=== PATIENT | male | born 1960 | race Caucasian/White ===

== ENCOUNTER 2021-04-20 05:55 | Observation (INO) ==
--- NOTE | 2021-03-30 09:54 | PAT Medication Instructions ---
Medication Instructions Date of Service March 30, 2021 Home Medications aspirin [Aspir-81] 81 mg PO QAM ibuprofen 400 mg PO DIRECTED PRN lisinopril 10 mg PO QAM ASK your surgeon for instructions ibuprofen 400 mg PO DIRECTED PRN DO NOT take the morning of surgery lisinopril 10 mg PO QAM Take morning of surgery With a small sip of water, OTHERWISE NOTHING TO EAT OR DRINK AFTER MIDNIGHT: aspirin [Aspir-81] 81 mg PO QAM (unless otherwise instructed by your surgeon) Other Notes If you have any questions please call us at [phone] or [phone] or [phone] or [phone]
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
[2021-04-20] MEDS ORDERED: TRANEXAMIC ACID 1,000 MG **IV Pre-op IV SCH (06:00)
[2021-04-20] MEDS ORDERED: ROPIVACAINE 0.5% HCL/PF 150 MG, BUPIVACAINE 0.75% MPF 20 ML, EPINEPHrine 30MG/30ML (OR ... INSTIL SCH (06:00)
[2021-04-20] MEDS ORDERED: CeleBREX 200 MG CAP PO SCH (06:00)
[2021-04-20] MEDS ORDERED: FAMOTIDINE 20 MG TAB PO SCH (06:00)
[2021-04-20] MEDS ORDERED: TRANEXAMIC ACID 1,000 MG **IV Intra-op IV SCH (06:00)
[2021-04-20] MEDS ORDERED: dexAMETHasone 4 MG TAB PO SCH (06:00)
[2021-04-20] MEDS ORDERED: GABAPENTIN 600 MG DOSE PO SCH (06:00)
[2021-04-20] MEDS ORDERED: LR 500ML BOLUS, THEN 15ML/HR IV SCH (06:00)
[2021-04-20] MEDS ORDERED: ACETAMINOPHEN 500 MG TAB PO SCH (06:00)
[2021-04-20] MEDS ORDERED: EPINEPHrine INJ 1 MG/ML AMP ONE (06:28)
[2021-04-20] MEDS ORDERED: LIDOCAINE 2%/EPINEPHRINE 1:200,000 20 ML SDV ONE (06:28)
[2021-04-20] MEDS ORDERED: ROPIVACAINE 0.5% 5 MG/ML 30 ML VIAL ONE (06:28)
--- NOTE | 2021-04-20 07:30 | History & Physical Bridge Note ---
Date of Service April 20, 2021 History & Physical Bridge Note I have examined the patient, reviewed the History & Physical and in the interval since the performance of the History & Physical I have noted the following changes of clinical significance: no changes noted
[2021-04-20] MEDS ORDERED: ORTHO JOINT ANESTHETIC ONE (07:31)
[2021-04-20] MEDS ORDERED: ONDANSETRON INJ 2 MG/ML 2 ML VIAL IV PRN ×2 (07:55→17:31)
[2021-04-20] MEDS ORDERED: MEPERIDINE HCL 25 MG/ML CARP/VIAL IV PRN (07:55)
[2021-04-20] MEDS ORDERED: PHENYLEPHRINE 100MCG/ML 5ML SYR IV PRN (07:55)
[2021-04-20] MEDS ORDERED: fentaNYL citrate 100 MCG/2 ML VIAL IV PRN (07:55)
[2021-04-20] MEDS ORDERED: HYDROmorphone INJ 1 MG/ML SYRINGE IV PRN (07:55)
[2021-04-20] MEDS ORDERED: ePHEDrine sulfate 50 MG/ML AMP IV PRN (07:55)
[2021-04-20] MEDS ORDERED: LABETALOL HCL IV 5 MG/ML 20ML IV PRN (07:55)
[2021-04-20] MEDS ORDERED: ATROPINE SULFATE 0.1 MG/ML 10ML SYR IV PRN (07:55)
[2021-04-20] MEDS ORDERED: fentaNYL citrate 100 MCG/2 ML VIAL ONE (08:02)
[2021-04-20] MEDS ORDERED: MEPIVACAINE HCL 2% 20 ML VIAL ONE (08:02)
[2021-04-20] MEDS ORDERED: MIDAZOLAM HCL 1 MG/ML 2ML VIAL ONE (08:03)
[2021-04-20] MEDS ORDERED: PROPOFOL IV EMULSION 10 MG/ML 20 ML VIAL IV ONE ×2 (08:32→09:08)
--- NOTE | 2021-04-20 09:40 | Operative Report ---
Post Operative Report Pre & Post Diagnosis Operation Date: 04/20/21 08:05 Pre-Op Diagnosis: Left Knee Osteoarthritis Post-Op Diagnosis: Left Knee Osteoarthritis I identified the patient and participated in the time-out.: Yes Procedure Operation Date: 04/20/21 08:05 Actual Procedures p Left Total Knee Arthroplasty(Left) utilizing [employer] persona CK size femur 10 CR tibia G poly 10 patella 31 x 8 oval- Kole Shaw DO Surgeon Kole Shaw DO Door Frame Builder JAIR Barrios Estimated Blood Loss 5 Findings Consistent with Post-Op Diagnosis Patient presents with severe end-stage tricompartmental degenerative joint disease left knee no response to conservative management patient is failed attempts at conservative management physical therapy anti-inflammatories and the patient had eburnated [id number] subchondral sclerosis marginal osteophytes subchondral cystic changes moderate to large effusion Specimens Bone and cartilage Drains Medium bore Hemovac Anesthesia Type MAC Spinal Regional Complications none Disposition Accompanied Patient To Recovery: No Disposition: Recovery Room Indications Patient presents with a failed attempted conservative management clinic physical therapy anti-inflammatories relative rest activity modification corticosteroid injection viscosupplementation above intraoperative findings were noted. Description of Procedure After proper prepping and draping of the left lower extremity anterior midline incision was made over the region of the extensor extensor mechanism after meticulous hemostasis was obtained and maintained in subcutaneous tissues a medial parapatellar incision was made The patella was subluxed lateralward the medial lateral gutter were cleaned from any hypertrophic synovitis and scar tissue of the distal femoral block was placed and the distal femoral osteotomy cut was made subsequently the chamfers anterior and posterior osteotomy cuts were made utilizing the 4-in-1 block the tibia was subsequently subluxed anteriorward medial and ateral meniscal remnants were excised in their entirety remnants of the anterior and posterior cruciate ligaments were excised in their entirety excellent exposure of the proximal tibia was obtained the tibial osteotomy guide was placed on the proximal tibial osteotomy cut was made once again the knee was irrigated with copious amounts of sterile saline solution the patella was subsequently everted lateralward thickened scar tissue around the patella was removed the patella was subsequently cut utilizing a freehand technique and was drilled prepared for final preparation and placement of patella socially flexion-extension gaps were checked and the equal and symmetric trials were placed to the appropriate femoral and tibial trials with poly-spacer being placed for equal flexion and extension gaps and full range of motion including extension to 0 and flexion to 140 the trial components after having been taken to recovery range of motion was subsequently removed meticulous hemostasis was obtained and maintained subsequently a knee block injection of joint cocktail including ropivacaine 0.5% 150 mg. Bupivacaine 0.5% epinephrine 1-200,030 mL's toradol 30 mg dexamethasone 4 mg ketamine 10 mg clonidine 100 micrograms normal saline solution 30 mg was infiltrated into the soft tissues of the posterior knee medial lateral gutters and periosteal synovium special attention was paid to protect neurovascular structures at all times subsequently trial components having been removed the knee was irrigated with sterile saline solution. debris was removed the proximal tibia was subsequently prepared and was made ready for the placement of the tibial component tibial component was also cemented and tamped into position the femoral component was subsequently placed and cemented in the position the patellar component was subsequently cemented in position because hemostasis once again obtained and maintained wound having been thoroughly irrigated with debridement and debridement lavage was performed as well as a medial parapatellar incision closed with #1 Vicryl in interrupted fashion subcutaneous was closed with #2 Vicryl skin was closed with skin clips. PA-C was necessary for prepping and drapping as well as wound closure of deep fascia Sub cutaneous tissue and skin and was necessary for the case. A sterile compressive dressing was placed patient was taken to recovery in stable condition of report dictated by Colin I attest to the content of the Intraoperative Record and any orders documented therein. Any exceptions are noted below. I attest to the content of the Intraoperative Record and any orders documented therein. Any exceptions are noted below.
[2021-04-20] MEDS ORDERED: oxyCODONE HCL IR 5 MG TAB (IMMEDIATE RELEASE) PO PRN ×2 (10:28)
[2021-04-20] MEDS ORDERED: HYDROmorphone INJ 0.5 MG/0.5 ML SYR IV PRN (10:28)
--- NOTE | 2021-04-20 11:03 | XRay Report ---
TWO VIEWS LEFT KNEE CLINICAL HISTORY: Postoperative examination. FINDINGS: AP and crosstable lateral portable views of the left knee are obtained. A left knee arthrop lasty is in near anatomic alignment. There has been undersurface remodeling of the patella. No acute fracture is seen. There are expected postoperative changes around the knee including a surgical drain , soft tissue edema, and subcutaneous gas. IMPRESSION: Expected postoperative changes status post left knee arthroplasty. No acute fracture is s een. ACT 112: Negative or not required by law. Electronically signed by: Brad Coyne M.D. 04/20/2021 11:02 AM
--- NOTE | 2021-04-20 11:17 | Anesthesiology Progress Note ---
Date of Service April 20, 2021 Anesthesia Post Procedure Vital Signs Vital Signs: Temp Pulse Pulse Resp BP Pulse Ox 04/20/21 11:10 36.4 C L 47 L 14 127/73 94 04/20/21 11:00 54 L 19 116/77 96 04/20/21 10:50 59 L 16 128/77 96 04/20/21 10:40 60 19 129/76 96 04/20/21 10:30 68 23 121/82 94 04/20/21 10:23 36.7 C 68 16 122/77 96 04/20/21 06:48 153/92 H 04/20/21 06:22 36.9 C 71 20 179/102 H 97 Pain Intensity Left Knee: Pain Intensity: 3 Transfer of Care Handoff Completed per policy Notes Mental Status: alert / awake / arousable Patient Amnestic to Procedure: Yes Nausea / Vomiting: adequately controlled Pain: adequately controlled Airway Patency, RR, SpO2: stable & adequate BP & HR: stable & adequate Hydration State: stable & adequate Neuraxial Anesthesia: was administered and sensory block is resolving Anesthetic Complications: no major complications apparent
[2021-04-20] MEDS ORDERED: MAGNESIUM HYDROXIDE SUSP 30 ML UDC PO PRN (17:31)
[2021-04-20] MEDS ORDERED: SODIUM CHLORIDE 0.9% 1000ML 1,000 ML IV SCH (17:31)
[2021-04-20] MEDS ORDERED: NALOXONE HCL 0.4 MG/1 ML VIAL/CARP IV PRN (17:31)
[2021-04-20] MEDS ORDERED: bisacodyL 10 MG SUPP PR PRN (17:31)
[2021-04-20] MEDS: ceFAZolin 2000MG 2,000 MG/15 ML SYR IV SCH (18:49)
[2021-04-20] MEDS ORDERED: SENNA 8.6 MG TAB PO SCH (21:00)
[2021-04-20] MEDS: DOCUSATE SODIUM 100 MG CAP PO SCH (21:30)
[2021-04-20] MEDS: CeleBREX 200 MG CAP PO SCH (21:30)
[2021-04-20] MEDS: ACETAMINOPHEN 500 MG TAB PO SCH (21:31)
[2021-04-21] MEDS: ceFAZolin 2000MG 2,000 MG/15 ML SYR IV SCH (02:33)
[2021-04-21] MEDS: ACETAMINOPHEN 500 MG TAB PO SCH ×2 (05:44→12:27)
[2021-04-21 07:02] LABS: Hematocrit (blood only) 33.4 % (42-52); Hemoglobin 11.2 g/dL (14.0-18.0); Mean Corpuscular Hemoglobin 28.9 pg (25-34); Mean Corpuscular Hgb Conc 33.5 g/dL (32-36); Mean Corpuscular Volume 86.1 fL (80-100); Mean Platelet Volume 10.2 fL (7.4-10.4); Platelet Count 178 K/uL (130-400); RDW Coefficient of Variation 13.5 % (11.5-14.5); RDW Standard Deviation 42.5 fL (36.4-46.3); Red Blood Count 3.88 M/uL (4.7-6.1); White Blood Count 12.11 K/uL (4.8-10.8)
[2021-04-21 07:35] LABS: BUN Creatinine Ratio 25.8 (10-20); Calcium 8.5 mg/dl (8.5-10.1); Creatinine Clr Calc Pharmacy 137.9 ml/min; Est GFR (African American) 110.8 ml/min; Est GFR (Non-African American) 95.6 ml/min; Potassium 3.8 mmol/L (3.5-5.1)
[2021-04-21] MEDS: CeleBREX 200 MG CAP PO SCH (07:37)
[2021-04-21] MEDS: DOCUSATE SODIUM 100 MG CAP PO SCH (07:37)
--- NOTE | 2021-04-21 07:49 | Orthopedic Progress Note ---
Date of Service April 21, 2021 Assessment & Plan (1) Arthritis of knee, left: Postop day 1 status post left total knee arthroplasty PT/OT protocols. Weightbearing as tolerated. Foot drop-resolving well. Likely from intraoperative injection. DVT prophylaxis-aspirin p.o. twice daily, SCDs, RONI desai. Pain management as written DC planning-patient is planning for home health services upon discharge. Plan for discharge to home today. Admission and Anticipated Discharge Date Admission Date: April 20, 2021 Subjective Postop day 1 Patient sitting up in bed awake and alert. No complaints this morning. Pain is controlled. Denies shortness of breath, chest pain, lightheadedness. Patient was kept overnight last night after not being able to ambulate well prior to possible discharge for outpatient total knee replacement. He also had a foot drop likely secondary from intraoperative injection. He states that that is doing much better this morning. He is hoping to go home today. Physical Exam Physical Exam: Dressings are clean, dry, and intact. Calves are soft nontender. He has good dorsiflexion and plantarflexion strength this morning in the operative LE. He does have some residual decrease sensation with a little bit of tingling in the dorsum of his foot but he states that is continuing to get better. DP pulse present. Hemovac drainage was 150 mL from the previous shift. Results & Data ([facility]) Vital Signs (Past 12 Hours) Vital Signs Temp Pulse Resp BP Pulse Ox 04/21/21 03:10 36.5 C 65 19 135/75 96 04/20/21 23:28 36.7 C 67 19 139/76 95 04/20/21 20:05 36.7 C 78 19 150/90 H 95 Laboratory Results Laboratory Results WBC 12.11 K/uL (4.8-10.8) H 04/21/21 06:42 RBC 3.88 M/uL (4.7-6.1) L 04/21/21 06:42 Hgb 11.2 g/dL (14.0-18.0) L 04/21/21 06:42 Hct 33.4 % (42-52) L 04/21/21 06:42 MCV 86.1 fL (80-100) 04/21/21 06:42 MCH 28.9 pg (25-34) 04/21/21 06:42 MCHC 33.5 g/dL (32-36) 04/21/21 06:42 RDW Std Deviation 42.5 fL (36.4-46.3) 04/21/21 06:42 RDW Coeff of Hari 13.5 % (11.5-14.5) 04/21/21 06:42 Plt Count 178 K/uL (130-400) 04/21/21 06:42 MPV 10.2 fL (7.4-10.4) 04/21/21 06:42 Sodium 140 mmol/L (136-145) 04/21/21 06:42 Potassium 3.8 mmol/L (3.5-5.1) 04/21/21 06:42 Chloride 110 mmol/L (98-107) H 04/21/21 06:42 Carbon Dioxide 22 mmol/L (21-32) 04/21/21 06:42 Anion Gap 9.0 (3-11) 04/21/21 06:42 BUN 22 mg/dl (7-18) H 04/21/21 06:42 Creatinine 0.83 mg/dl (0.6-1.4) 04/21/21 06:42 Est Cr Clr Drug Dosing 137.9 ml/min 04/21/21 06:42 Est GFR ( Amer) 110.8 ml/min 04/21/21 06:42 Est GFR (Non-Af Amer) 95.6 ml/min 04/21/21 06:42 BUN/Creatinine Ratio 25.8 (10-20) H 04/21/21 06:42 Glucose 117 mg/dl (70-99) H 04/21/21 06:42 Calcium 8.5 mg/dl (8.5-10.1) 04/21/21 06:42 COVID-19 [facility] [place] 04/20/21 16:27 SARS-CoV-2, RNA, NAAT NEGATIVE (NEGATIVE) 04/20/21 16:27 Impressions Knee X-Ray 04/20/21 10:28 TWO VIEWS LEFT KNEE CLINICAL HISTORY: Postoperative examination. FINDINGS: AP and crosstable lateral portable views of the left knee are obtained. A left knee arthroplasty is in near anatomic alignment. There has been undersurface remodeling of the patella. No acute fracture is seen. There are expected postoperative changes around the knee including a surgical drain, soft tissue edema, and subcutaneous gas. IMPRESSION: Expected postoperative changes status post left knee arthroplasty. No acute fracture is seen. ACT 112: Negative or not required by law. Electronically signed by: Brad Coyne M.D. 04/20/2021 11:02 AM
[2021-04-21] MEDS ORDERED: MULTIVITAMIN TAB PO SCH (09:00)
[2021-04-21] MEDS ORDERED: ASPIRIN 81 MG ECTAB PO SCH (09:00)
[2021-04-21] MEDS ORDERED: lisinopril 10 MG TAB PO SCH (09:00)
--- NOTE | 2021-04-22 13:32 | Discharge Summary ---
Date of Service April 22, 2021 Admission HPI Per Admitting Provider Fabian is a 60 year old male who complains of left knee pain, presents for pre-op evaluation prior to a left total knee replacement by Dr Shaw at [facility]. he complains of pain, decreased range of motion and stiffness in his left knee. Currently the patient states that the symptoms are moderate-severe. The pain is described as aching, sharp and throbbing. His symptoms are aggravated by ascending stairs, daily activities, first steps while awake walking. Prior NSAIDs include IBU and Aleve. He has been treated with previous cortisone and visco injections in the past without much relief. Admission Exam Per Admitting Provider Physical Exam: HT: 6'3" WT: 288 BP: 113/72 Constitutional: WD/WN, vitals as above no acute distress Respiratory: normal respiratory effort, lungs clear to auscultation no respiratory distress, no labored breathing and does not use accessory muscles Cardiovascular: RRR, no murmur, no edema Gastrointestinal (Abdomen): normal bowel sounds, soft, nontender, no hepatosplenomegaly Musculoskeletal: Knee: + knee abnormal to inspection (left knee- ), + effusion (+1 effusion), + limited ROM of knee (ROM 0/3/110), + knee ROM with crepitation, + joint line tenderness (medial joint line) and + Mirna's sign positive; no deformity, no skin erythema, no ecchymosis, no valgus laxity, no varus laxity, anterior drawer test negative, Consuelo's sign negative and pivot shift test negative Principal Diagnosis Left Knee Osteoarthritis Discharge Data Allergies Allergy/AdvReac Type Severity Reaction Status Date / Time No Known Allergies Allergy Verified 04/20/21 06:17 Procedures Performed Operation Date: 04/20/21 08:05 Actual Procedures p Left Total Knee Arthroplasty(Left) - Kole Shaw DO Ordered Studies 04/20/21 05:00 US - OR guided needle placemen Routine Hospital Course (1) Arthritis of knee, left: Date of Service April 21, 2021 Assessment & Plan (1) Arthritis of knee, left: Postop day 1 status post left total knee arthroplasty PT/OT protocols. Weightbearing as tolerated. Foot drop-resolving well. Likely from intraoperative injection. DVT prophylaxis-aspirin p.o. twice daily, SCDs, RONI desai. Pain management as written DC planning-patient is planning for home health services upon discharge. Plan for discharge to home today. Admission and Anticipated Discharge Date Admission Date: April 20, 2021 Subjective Postop day 1 Patient sitting up in bed awake and alert. No complaints this morning. Pain is controlled. Denies shortness of breath, chest pain, lightheadedness. Patient was kept overnight last night after not being able to ambulate well prior to possible discharge for outpatient total knee replacement. He also had a foot drop likely secondary from intraoperative injection. He states that that is doing much better this morning. He is hoping to go home today. Physical Exam Physical Exam: Dressings are clean, dry, and intact. Calves are soft nontender. He has good dorsiflexion and plantarflexion strength this morning in the operative LE. He does have some residual decrease sensation with a little bit of tingling in the dorsum of his foot but he states that is continuing to get better. DP pulse present. Hemovac drainage was 150 mL from the previous shift. Results & Data ([facility]) Vital Signs (Past 12 Hours) Vital Signs Temp Pulse Resp BP Pulse Ox 04/21/21 03:10 36.5 C 65 19 135/75 96 04/20/21 23:28 36.7 C 67 19 139/76 95 04/20/21 20:05 36.7 C 78 19 150/90 H 95 Laboratory Results Laboratory Results WBC 12.11 K/uL (4.8-10.8) H 04/21/21 06:42 RBC 3.88 M/uL (4.7-6.1) L 04/21/21 06:42 Hgb 11.2 g/dL (14.0-18.0) L 04/21/21 06:42 Hct 33.4 % (42-52) L 04/21/21 06:42 Total Time Total Time Spent Total Time Spent (In Minutes): 5 Discharge Plan Discharge Items Patient Disposition: Home - Home Health Services Reason For Visit: Left Knee Osteoarthritis, Z01.818 Discharge Diagnosis: ` Left knee osteoarthritis Activity: Per Instructions section Weightbearing: Left weightbearing Weightbearing Comment: As tolerated with walker Non-emergency contact: Surgeon Call non-emergency contact if: your pain is not controlled, your temperature is above 101.5, your wound has increased redness and your wound has increased drainage Follow-up/Referrals: [facility] [Outside] (per surgeon's office) Kole Shaw, [Surgeon] - (Follow up in 2 weeks for wound check.) Valerio Lawson M.D. [Primary Care Provider] - Diet: Regular Addtl Attending Provider Instructions: YOUR MEDICATIONS HAVE BEEN SENT TO YOUR PHARMACY PRIOR TO YOUR SURGERY. SOME OF THE MEDICATIONS MAY OR MAY NOT BE LISTED BELOW. HOME HEALTH SERVICES TO REMOVE DRAIN BY 04/22/21. ACTIVITY RECOMMENDATIONS: SELF CARE INSTRUCTIONS AFTER TOTAL KNEE REPLACEMENT A. You may need to continue a physical therapy program after discharge from the hospital. There are several options available to you. Your doctor will assist you in selecting the best one for you. 1. An out-patient facility 2 to 3 times a week for therapy or home therapy. 2. Continue working on all exercises taught to you in the hospital. Your goals should be to increase bending of your knee to 90 degrees and beyond and to fully straighten your knee. B. You may progress at your own pace from walking with a walker or crutches to a cane; then to no assistive devices. C. Make walking a part of your daily routine. Be up as much as comfortable with rest periods throughout the day. Rest with leg elevation is very important. Use the ice wrap frequently for the first 3-4 weeks. D. There are no restrictions on activities. You may ride in a car, shop, participate in financial director and all social activities. E. Wear the long elastic stockings (RONI hose) 20 hours a day for 2 weeks after surgery. They can be removed several times a day for laundering and for a bath. F. You may shower, no tub baths until cleared by your doctor. SPECIAL CARE INSTRUCTIONS: VERY IMPORTANT TO READ AND REVIEW A. There are a few signs you need to watch for after you are home. Call [facility] if you notice any of the followin. Increased severe knee pain. Some pain is expected especially when you exercise. 2. Increased swelling in your leg or knee; pain or swelling of the calf muscle in either lower leg. 3. Any fluid drainage from the incision. 4. Shortness of breath or chest pain. B. Please call [facility] at if you have any concerns or questions about your operation or recovery. The doctor or his nurse will return your call promptly. C. You must take antibiotics before dental work, bladder, bowel or other surgery. Your doctor will provide you with a permanent care to carry describing this precaution. IMPORTANT: * REMEMBER TO TAKE ASPIRIN, 81 MG, TWICE DAILY FOR 4 WEEKS UNLESS OTHERWISE DIRECTED. THIS IS YOUR BLOOD THINNER. * HIGH RISK PATIENTS MAY BE PRESCRIBED A STRONGER BLOOD THINNER. THIS WILL BE PROVIDED AT DISCHARGE. * CALL IF INCREASED PAIN, REDNESS, DRAINAGE OR FEVER GREATER THAT 101. * WEAR RONI HOSE 20 HOURS PER DAY FOR 2 WEEKS. * CHANGE DRESSING IN 48 HOURS, THEN CHANGE DAILY. KEEP WOUND COVERED WITH SMALL DRESSSING UNTIL SEEN IN THE OFFICE FOR YOUR 1ST VISIT * DERMABOND Prineo- This is a mesh tape dressing that is covered with glue. It should remain in place until the incision is properly healed, usually 10-14 days. This dressing is designed to naturally slough off. You may trim the excess mesh tape as it peels off. Incision may be briefly wet in a shower. Dry immediately by blotting with a clean, dry towel. Do not bath or swim until instructed by your doctor. Do not scratch, rub, or pick at the dressing. Do not apply any topical ointments or lotions until dressing is completely removed and/or instructed by your doctor. There may be a small piece of suture material at one end of your incision. Do not pull or trim this. If it is bothersome or catching on clothing, you may cover it with a band-aid. . FOLLOW UP VISIT: If appointment is not already scheduled: Please call [facility] to make a follow-up appointment for 2 weeks after your surgery at . Stand-Alone Forms: Anesthesia/Sedation, Adult, My [facility] Medications and DC Order Prescriptions: New polyethylene glycol 3350 [Miralax] 17 gram powder in packet 17 g PO DAILY PRN (Reason: constipation) Qty: 5 RF: 0 aspirin [Ecotrin Low Strength] 81 mg tablet,delayed release (DR/EC) 81 mg PO BID 30 Days Qty: 60 RF: 0 cefadroxil 500 mg capsule 500 mg PO BID Qty: 28 RF: 1 acetaminophen 500 mg capsule 1,000 mg PO Q8H 14 Days Qty: 84 RF: 0 oxycodone 5 mg Tablet 5 mg PO Q4H MDD 6 PRN (Reason: pain) Qty: 30 RF: 0 Continued lisinopril 10 mg Tablet 10 mg PO QAM RF: 0 Discontinued aspirin [Aspir-81] 81 mg Tablet,Delayed Release (Dr/Ec) 81 mg PO QAM RF: 0 ibuprofen 200 mg Tablet 400 mg PO DIRECTED PRN (Reason: Pain) RF: 0 Discharge Orders: Discharge Order (Routine); Ordered 04/21/21 Ordered By: Luis Elam/Other Patient Handouts: DVT Post Op Prevention, Negative Pressure Wound Therapy Admission Data Admit Date/Time: 04/20/21 15:24 Attending Provider: Kole Shaw Admit Provider: Kole Shaw Primary Care Provider: Valerio Lawson Other Providers: [facility],Home Health Other Interventions: Discharge Summary Assessment (RN) Last Done: 04/21/21 08:45
== END 2021-04-21 15:21 | disposition home health service (06) ==
LOC: 3E 05:55 → ASU 05:55